=== PATIENT | female | born 1960 | race Caucasian/White ===

== ENCOUNTER 2022-07-15 15:08 | Emergency (ER) | payer MEDICAID ==
[2022-07-15] MEDS ORDERED: Sodium Chloride 0.9% 10 ML Syringe FLUSH PRN (15:26)
[2022-07-15] MEDS ORDERED: methylPREDNISolone Sodium Succinate 125 MG/2 ML SDV IVPUSH ONE (15:51)
[2022-07-15] MEDS ORDERED: Famotidine 20 MG/2 ML SDV IVPUSH ONE (15:51)
[2022-07-15] MEDS ORDERED: diphenhydrAMINE 50 MG/ML SDV IVPUSH ONE (15:51)
[2022-07-15 15:58] LABS: ANION GAP 11.9 mEq/L (7-13); CHLORIDE,CL 103 mmol/L (98-107); ESTIMATED GFR 101 mL/min (>=60); SODIUM,NA 144 mmol/L (136-145)
[2022-07-15 16:39] VITALS: BP 98/77; PULSE 83
== END 2022-07-15 16:29 | disposition home or self-care (01) ==
LOC: DL.ED 15:08
DX: T78.40XA Allergy, unspecified, initial encounter (principal); S00.81XA Abrasion of other part of head, initial encounter; E78.00 Pure hypercholesterolemia, unspecified; I10 Essential (primary) hypertension; J44.9 Chronic obstructive pulmonary disease, unspecified; F17.210 Nicotine dependence, cigarettes, uncomplicated; Z88.1 Allergy status to other antibiotic agents; Z79.899 Other long term (current) drug therapy
CPT/HCPCS: 36415; 80053; 83605; 85025; 85651; 86140; 96374; 96375; 99283; 99283-25; J1200; J2930; J3490